=== PATIENT | female | born 2000 | race Two or more races ===

== ENCOUNTER 2022-05-23 07:35 | Emergency (ER) | payer OTHER ==
[~2022-05-23] VITALS: Ht 165.1 cm; Wt 70.9 kg
[2022-05-23 08:04] VITALS: BP 114/73
[2022-05-23] MEDS ORDERED: ACETAMINOPHEN 325 MG TAB PO ONE (08:45)
[2022-05-23 08:47] LABS: Urine Bacteria FEW /hpf (None Seen); Urine Blood TRACE /uL (Negative); Urine Specific Gravity 1.015 (1.001-1.035); Urine WBC 12 /hpf (0 - 5)
[2022-05-23] MEDS ORDERED: IBUP800T27 PO (09:00)
[2022-05-23] MEDS ORDERED: SULF400T11 PO (09:09)
== END 2022-05-23 09:14 | disposition home or self-care (01) ==
LOC: ER 07:35
DX: G44.319 Acute post-traumatic headache, not intractable (principal); N30.00 Acute cystitis without hematuria
CPT/HCPCS: 70450; 81001